=== PATIENT | female | born 1940 ===

== ENCOUNTER 2021-08-07 11:02 | Day surgery (SDC) | payer MEDICARE ==
[2021-08-06 09:24] VITALS: BMI 20.3
[2021-08-07] MEDS ORDERED: Lidocaine 1% w/Epinephrine 1:100K 20 ML VIAL ONE (12:39)
[2021-08-07] MEDS ORDERED: Bacitracin Zinc Ointment 30 gm TUBE ONE (12:39)
[2021-08-07 12:53] LABS: Hemoglobin 11.8 g/dL (12.0-16.0); Mean Corpuscular HGB CONC 32.9 g/dL (32.0-36.0); Mean Corpuscular Hemoglobin 27.1 pg (27.0-31.0); Mean Corpuscular Volume 82.5 fL (78.0-98.0); Mean Platelet Volume 7.3 fL (7.4-10.4); Platelet Count 312 thou/uL (130-400); RBC Distribution Width 14.4 % (11.5-14.5); Red Blood Cell (RBC) Count 4.35 mill/uL (4.20-5.40); White Blood Cell (WBC) Count 6.8 thou/uL (4.8-10.8)
[2021-08-07] MEDS ORDERED: Fentanyl 100 MCG/2 ML VIAL ONE ×2 (12:58→14:46)
[2021-08-07] MEDS ORDERED: SUGAMMADEX SODIUM 200 MG/2 ML VIAL ONE (12:58)
[2021-08-07] MEDS ORDERED: Famotidine/PF 20 mg/2ml Vial ONE (12:58)
[2021-08-07 13:06] LABS: Anion Gap 12 mmol/L (10-20); BUN (Urea Nitrogen) 9 mg/dL (9.8-20.1); Calc. Creatinine Clearance 47 mL/min (70-130); Calcium 9.5 mg/dL (7.8-10.44); Carbon Dioxide 27 mmol/L (23-31); Chloride 100 mmol/L (98-107); Glucose 106 mg/dL (83-110); Potassium 3.7 mmol/L (3.5-5.1); Sodium 135 mmol/L (136-145)
[2021-08-07] MEDS ORDERED: PROPOFOL 200 MG/20 ML VIAL ONE (13:07)
[2021-08-07] MEDS ORDERED: PHENYLEPHRINE-NS 100 MCG/ML 10 ML SYRINGE ONE (13:07)
[2021-08-07] MEDS ORDERED: Rocuronium Bromide 10 MG/ML (10ML VIAL) ONE (13:07)
[2021-08-07] MEDS ORDERED: Lidocaine 1% PF 5 ML VIAL ONE (13:07)
[2021-08-07] MEDS ORDERED: Mineral Oil Sterile 10 ML VIAL ONE (13:48)
[2021-08-07] MEDS ORDERED: Labetalol HCl 100 MG/20 ML VIAL ONE (14:36)
== END 2021-08-07 16:37 | disposition home or self-care (01) ==
LOC: SDC 11:02
PROVIDERS: ATTEND Specialist
PROC: 0CTG0ZZ Resection of Right Submaxillary Gland, Open Approach (ICD-10-PCS; principal; 2021-08-07)
PROC: 0HR1X74 Replacement of Face Skin with Autologous Tissue Substitute, Partial Thickness, External Approach (ICD-10-PCS; 2021-08-07)
DX: K11.5 Sialolithiasis (principal); K11.23 Chronic sialoadenitis; C44.311 Basal cell carcinoma of skin of nose; D22.39 Melanocytic nevi of other parts of face; L57.8 Other skin changes due to chronic exposure to nonionizing radiation; I10 Essential (primary) hypertension; E78.5 Hyperlipidemia, unspecified; F17.210 Nicotine dependence, cigarettes, uncomplicated; J38.7 Other diseases of larynx; Z79.82 Long term (current) use of aspirin; Z79.899 Other long term (current) drug therapy; Z88.5 Allergy status to narcotic agent
CPT/HCPCS: 36415; 80048; 85027; 88305; 88331; 88332; 93005; 93010; J2704; J3010; S0028